=== PATIENT | female | born 1995 | race Caucasian/White ===

== ENCOUNTER → 2020-09-12 | Outpatient (CLI) | payer OTHER | LOC: KOH-I 15:11 | DX: S99.921A Unspecified injury of right foot, initial encounter (principal); X58.XXXA Exposure to other specified factors, initial encounter | CPT/HCPCS: 73630 ==

== ENCOUNTER → 2020-10-24 | Outpatient (CLI) | payer OTHER | LOC: KOH-I 09:31 | DX: S92.341A Displaced fracture of fourth metatarsal bone, right foot, initial encounter for closed fracture (principal); S92.351A Displaced fracture of fifth metatarsal bone, right foot, initial encounter for closed fracture; X58.XXXA Exposure to other specified factors, initial encounter | CPT/HCPCS: 73630 ==